=== PATIENT | male | born 1945 | race Caucasian/White ===

== ENCOUNTER 2021-05-01 11:31 | Outpatient (CLI) | payer MEDICARE, BC | END 2021-05-01 11:32 | disposition home or self-care (01) | LOC: CSHULT 11:31 | PROVIDERS: ATTEND Otolaryngology Plastic Surgery within the Head & Neck | DX: E04.1 Nontoxic single thyroid nodule (principal) | CPT/HCPCS: 76536 ==

== ENCOUNTER 2022-05-18 10:12 | Outpatient (CLI) | payer MEDICARE, BC | END 2022-05-18 10:13 | disposition home or self-care (01) | LOC: CSHULT 10:12 | PROVIDERS: ATTEND Otolaryngology Plastic Surgery within the Head & Neck | DX: E04.1 Nontoxic single thyroid nodule (principal) | CPT/HCPCS: 76536 ==